=== PATIENT | male | born 1975 | race Hispanic/Latino ===

== ENCOUNTER 2018-05-25 22:14 | Emergency (ER) | payer BC ==
--- NOTE | 2018-05-25 22:35 | C.PDOC ---
History Of Present Illness Patient presents to the ER with diffuse urticarial rash after taking liquid advil for back pain 1-2 hours [employer]. Patient has taken ibuprofen before but never liquid advil. He is currently speaking in complete sentences. Denies fever, chills, nausea, or vomiting. Time Seen by Provider: 05/25/18 22:35 History Per: Patient History/Exam Limitations: no limitations Onset/Duration Of Symptoms: Hrs (1-2) Current Symptoms Are (Timing): Still Present Possible Cause: Medication (Liquid advil) Associated Symptoms: Skin Rash Home/EMS Treatment: None Recent travel outside of the [place]: No Past Medical History Reviewed: Historical Data, Nursing Documentation, Vital Signs Family History: States: Unknown Family Hx - Immunization History Hx Tetanus Toxoid Vaccination: Yes Review Of Systems Constitutional: Negative for: Fever, Chills Cardiovascular: Negative for: Chest Pain, Palpitations Respiratory: Negative for: Cough, Shortness of Breath Gastrointestinal: Negative for: Nausea, Vomiting Skin: Positive for: Rash Neurological: Negative for: Weakness, Numbness Physical Exam - Physical Exam Appears: Non-toxic Skin: Other (Diffuse erythema and hives, very itchy) Head: Normacephalic Oral Mucosa: Moist Throat: No Erythema, Other (Uvula midline, tolerating own secretions) Neck: Trachea Midline, Supple Chest: Symmetrical, No Tenderness Cardiovascular: Rhythm Regular Respiratory: No Accessory Muscle Use, No Rales, No Rhonchi, No Stridor, No Wheezing Gastrointestinal/Abdominal: Soft, No Tenderness Neurological/Psych: Oriented x3 ED Course And Treatment O2 Sat by Pulse Oximetry: 100 Pulse Ox Interpretation: Normal Progress Note: 10:53 PM Rash started to fade, less itching. vitals stable. Pt feels better. 12:11 am rash , symptoms resolved Reevaluation Time: 00:10 Reassessment Condition: Improved Disposition Counseled Patient/Family Regarding: Studies Performed, Diagnosis, Need For Followup, Rx Given - Disposition Referrals: [facility] [Outside] Disposition: HOME/ ROUTINE Disposition Time: 22:35 Condition: FAIR Additional Instructions: Please return of symptoms recur. Also use benadryl, pepcid, and claritin Prescriptions: Epinephrine [Epipen] 0.3 mg IJ ONCE PRN #2 auto.injct PRN Reason: Anaphylaxis Prednisone [Deltasone] 20 mg PO DAILY #5 tablet Instructions: Drug Allergy - Clinical Impression Clinical Impression: Allergic reaction - Scribe Statement The provider has reviewed the documentation as recorded by the Scribe Manuel Lyman All medical record entries made by the Harryibe were at my direction and personally dictated by me. I have reviewed the chart and agree that the record accurately reflects my personal performance of the history, physical exam, medical decision making, and the department course for this patient. I have also personally directed, reviewed, and agree with the discharge instructions and disposition.
[2018-05-25 22:36] VITALS: BMI 32.5
[2018-05-25] MEDS ORDERED: DiphenhydrAMINE 50 mg/ml Inj IVP STA (22:36)
[2018-05-25] MEDS ORDERED: MethylPREDNISolone 40 mg Vial IVP STA (22:36)
[2018-05-25] MEDS ORDERED: Sodium Chloride 0.9% 1,000 ML IV ONE (22:37)
[2018-05-25 23:49] VITALS: BP 139/88; PULSE 89; RESP 18; TEMP 98.1
[2018-05-26 00:13] VITALS: O2SAT 100
== END 2018-05-26 00:40 | disposition home or self-care (01) ==
LOC: C.ER 22:14
DX: L50.0 Allergic urticaria (principal)
CPT/HCPCS: 96374; 96375; 99284; J1200; J2920; J7030